=== PATIENT | male | born 1955 | race Caucasian/White ===

== ENCOUNTER 2016-07-12 21:50 | Emergency (ER) | payer OTHER ==
[2016-07-12] MEDS ORDERED: OPTIRAY 350 100 ML VIAL HMH IV ONE (21:51)
[2016-07-12] MEDS ORDERED: ASPIRIN 81 MG CHEW TAB ONE (22:05)
[2016-07-12] MEDS ORDERED: DILAUDID 1 MG/ML AMP ONE (23:10)
== END 2016-07-13 00:29 | disposition home or self-care (01) ==
LOC: ER 21:50
CPT/HCPCS: 36415 ×2; 71010 ×2; 71275 ×2; 74175 ×2; 80053 ×2; 82550 ×2; 82565 ×2; 83735 ×2; 84484 ×2; 85025 ×2; 85610 ×2; 85730 ×2; 93005 ×2; 96374 ×2; 99285; J1170; Q9967